=== PATIENT | male | born 1935 | race Caucasian/White ===

== ENCOUNTER → 2017-08-27 | Outpatient (CLI) | payer MEDICARE, BC ==
[~2017-08-27] VITALS: Ht 170.2 cm; Wt 63.5 kg
[~2017-08-27] MED LIST: AMLODIPINE BESY10 MG PO; ASPIRIN81 M2 PO; CARVEDILOL3.125 MG PO; CLARITIN10 MG PO; FLOMAX0.4 MG PO; FOLIC ACID1 MG PO; LISINOPRIL20 MG PO; OXYCODONE HCL15 MG PO; PRAVACHOL40 MG PO; PREDNISONE 10 M10 M1 PO; PROSCAR 5MG TABL5 MG PO; [UNRECOGNIZED DRUG - OTHER] PO
[2017-08-27 09:41] LABS: HEMATOCRIT 31.5 % (42.0-52.0); HEMOGLOBIN 10.6 gm/dL (14.0-18.0); MCH 31.7 pg (26.0-34.0); MCHC 33.6 g/dL (28.0-37.0); MCV 94.4 fL (80.0-100.0); MPV 7.6 fl. (7.2-11.1); RBC 3.34 mil/uL (4.50-6.00); WBC 8.5 thou/uL (4.0-11.0)
[2017-08-27 09:49] LABS: ANION GAP 4 mmol/L (7-16); BUN 21 mg/dL (7-18); CHLORIDE 102 mmol/L (98-107); CO2 32 mmol/L (21-32); CREATININE 0.9 mg/dL (0.6-1.3); GLUCOSE 107 mg/dL (70-99); POTASSIUM 4.6 mmol/L (3.5-5.1); SODIUM 138 mmol/L (136-145)
[2017-08-27 09:50] LABS: APTT 25.7 Seconds (25.0-31.3); PROTIME 9.7 Seconds (9.20-11.50)
[2017-08-27 09:55] LABS: ALBUMIN 3.3 g/dL (3.4-5.0); ALKALINE PHOSPHATASE 61 U/L (46-116); CHOLESTEROL 172 mg/dL (<200); HDL CHOLESTEROL 89 mg/dL (>40); LDL CHOLESTEROL 75 mg/dL (<100); SGOT 20 U/L (15-37); SGPT 22 U/L (30-65); TC:HDL 1.9 Ratio (Not establshd); TOTAL BILIRUBIN 0.6 mg/dL (<0.1-1.0); TOTAL PROTEIN 6.4 g/dL (6.4-8.2); TRIGLYCERIDE 43 mg/dL (<150); VLDL 9 mg/dL (<40)
[2017-08-27 09:56] LABS: SERUM ASSESSMENT Clear
[2017-08-27 10:07] VITALS: BP 137/49
[2017-08-27 12:50] LABS: HCO3 27.9 mmol/L (22.0-26.0); PCO2 43.9 mmHg (35.0-45.0); PO2 68.8 mmHg (75.0-100.0); pH 7.421 (7.340-7.450)
[2017-08-27 12:50] LABS: BE 4.4 mmol/L (-2 to +3); HCO3 30.2 mmol/L (22.0-26.0); PCO2 VENOUS 50.9 mmHg (41.0-51.0)
[2017-08-27 12:54] LABS: PO2 VENOUS 36.7 mmHg (35.0-45.0)
[2017-08-27 13:56] VITALS: BP 147/63
[2017-08-27 15:22] VITALS: BP 136/69
[2017-08-27 16:36] VITALS: BP 117/65
--- NOTE | 2017-08-27 18:19 | EKG ---
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: : 1935 Requested By: Eric Strauss Order Number: [id number] Reading MD: Eric Strauss Measurements Intervals [place] Rate: 72 P: -2 ND: 186 QRS: -65 QRSD: 135 T: 36 QT: 429 QTc: 470 Interpretive Statements Sinus rhythm Probable left atrial enlargement IVCD, consider atypical RBBB Left ventricular hypertrophy Anterior infarct, old Abnormal T, consider ischemia, lateral leads No previous ECG available for comparison Electronically Signed On 08-27-2017 18:19:34 CDT by Eric Strauss [email or web address] <ELECTRONICALLY SIGNED> By: Eric Strauss MD, [facility] 08/27/17 1819 28 28 Eric Strauss MD, [facility] /EPI
--- NOTE | 2017-08-27 20:33 | CARD ---
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 The right femoral was infiltrated with 1% Lidocaine subcutaneous anesthesia. A Right Heart Catheterization was performed with a 7 Fr. [place]-Val catheter and pressure were recorded. Cardiac outputs were obtained by the Thermal Dilution method. A 7Fr x 11cm Quynh sheath was inserted into the RFA^. Coronary angiography was performed using coronary diagnostic catheters. The right coronary system was accessed and visualized with a Diagnostic 6fr JR catheter. The left coronary system was accessed and visualized with a Diagnostic 6fr JL 4 catheter. The left ventricle was accessed and visualized with a dual lumen pigtail catheter. Left ventricular/Aortic Valve gradient assessed via catheter pullback. Left ventriculogram was performed in LARA projection. An aortogram of the ascending aorta was performed. Pre-demployment femoral angiogram was [place] [address] CARDIAC CATH REPORT Name: RAFAELA WRAY Room: [facility] Juanjose#: [id number] Admission: 08/27/17 Attend Phys: Eric Strauss MD, F Discharge: Date of : 35 Report #: [id number] deployed with a 6 Fr MynxGrip 6/7F. Hemostasis was obtained with manual pressure following sheath removal without any complications. The patient tolerated the procedure well and there were no complications associated with the procedure. There was no hematoma. 7 Malay sheath placed in the RFV and hemostasis achieved by direct pressure. SVG to RCA visualized with MTP catheter. SVG to circumflex visualized with 6F JR4 catheter. Unable to cannulate left subclavian artery with either JR4 or MTP catheter because of tortuous aortic arch. Intraoperative Conscious Sedation Sedation start time: 12:04 Case end Time: 13:27 Versed 2 mg Fluoro Time: 13.2 minutes Dose: DAP 35270 cGycm2 1546.27 mGy Contrast Type and Amount: Visipaque 250 ml Coronary Angiography The patient's coronary anatomy is right dominant. [place] Artery Percent Stenosis Grafts (Complete if Previous CABG=Yes: Percent Stenosis) Unable to cannulate left subclavian artery, therefore, MCDANIEL graft was not antegrade filled. However, retrograde flow noted into MCDANIEL graft on visualization of [place] LAD. Patent SVG noted to distal diagonal branch and distal marginal branch of the circumflex. Second patent SVG noted arising from the aorta and filled the PDA and BERNARD branch of the distal RCA. Diagnostic Cath Left Main 0% stenosis LAD 80% stenosis before second diagonal branch and 80% mid stenosis noted. Competitve flow noted from a MCDANIEL graft. Diagonal 1 small vessel with ostial 90% stenosis Diagonal 2 medium sized vessel with ostial 80% stenosis Circumflex proximally occluded Right Coronary proximally occluded Left Ventriculography The left ventricular ejection fraction is estimated to be 40-45%. There is no mitral insufficiency. Aortic root injection revealed [place] [address] CARDIAC CATH REPORT Name: RAFAELA WRAY Room: [facility]#: [id number] Admission: 08/27/17 Attend Phys: Eric Strauss MD, F Discharge: Date of : 35 Report #: [id number] Hemodynamics The right atrial mean pressure is 4 mmHg. The right ventricular pressure is 30/5 mmHg. The pulmonary artery pressure is 30/10 mmHg with a mean of 15 mmHg. The mean pulmonary capillary wedge pressure is 8 mmHg. The aortic pressure is 155/49 mmHg with a mean of mmHg. The left ventricular pressure is 179 mmHg with a mean of mmHg. The left ventricular end diastolic pressure is 10 mmHg. Pullback from the left ventricle to the aorta revealed a 25 mm gradient across the aortic valve. PaO2 saturation is 66.40 %. Arterial saturation is 91.90 %. The cardiac output and index were assessed using thermodilution. The cardiac output using thermo method is 5.13 L/min. The cardiac index using thermo method is 2.96 L/min/m2. The peak gradient across the aortic valve is 25 mmHg. The aortic valve area is 1.0-0.9 cm2. The mean gradient across the mitral valve is 0 mmHg. Conclusion 1. Mild LV dysfunction 2. Unable to cannulate MCDANIEL graft, although retrograde flow noted from [place] lad 3. patent SVG to diagonal artery and marginal branch 4. patent SVG to PDA and BERNARD branch of the distal RCA 5. Moderately severe and moderate AI Recommendations 1. consider transcatheter aortic valve replacement. 2. consider arteriogram of MCDANIEL graft from left radial artery. <ELECTRONICALLY SIGNED> By: Eric Strauss MD, FACC 08/27/172031 31 arlette Strauss MD, FACC /INF
--- NOTE | 2017-08-29 17:42 | H ---
[address] [address] HISTORY AND PHYSICAL Name: RAFAELA WRAY Room: [facility] Manning[facility]ri[facility]#: [id number] Admission: 08/27/17 Attend Phys: Eric Strauss MD, F Discharge: Date of : 35 Report #: [id number] THIS REPORT FOR: //name// CC: Eric Rubi MD HISTORY OF PRESENT ILLNESS: The patient is an 82-year-old white male who was brought to the Outpatient Department at [facility] to undergo cardiac catheterization. The patient had coronary artery bypass surgery x 5 at [facility] in 2000. He has done well since that time, although he developed PAD. He actually had right leg bypass surgery by Dr. Villar at [facility] in apparently 2010. He has had stents placed since that time. He denies any significant leg pain at this time. He denied any recent chest pain. However, he has had increasing shortness of breath and was actually admitted to [facility] recently for 5 days. He underwent an echocardiogram that showed evidence of aortic stenosis. He was referred to [facility] for consideration of transcatheter aortic valve replacement as he was not felt to be an operative candidate. Prior to undergoing aortic valve replacement percutaneously, coronary bypass surgery was requested. The patient denies any significant syncope or palpitations. PAST MEDICAL HISTORY: Otherwise, significant for no other surgical procedures. He does have a history of hypertension. MEDICATIONS ON ADMISSION: Included amlodipine, aspirin, Proscar, lisinopril, prednisone for arthritis, ranitidine, Flomax and Pravachol. ALLERGIES: He has no known drug allergies. FAMILY HISTORY: Negative for heart disease. SOCIAL HISTORY: He is . He and his live outside of [place], [place], on a farm. He quit smoking. No alcohol abuse. REVIEW OF SYSTEMS: He has had no history of stroke, asthma, peptic ulcer disease, liver disease, kidney disease or cancer. PHYSICAL EXAMINATION: VITAL SIGNS: Revealed a blood pressure of 120/60, pulse 60. He is afebrile. HEENT: Mucous membranes moist. He has bilateral carotid bruits. CHEST: Clear to auscultation. HEART: Regular rate and rhythm, grade 3 systolic ejection murmur. ABDOMEN: Soft, nontender. EXTREMITIES: Had no edema. Posterior tibial pulses cannot be palpated. SKIN: [place] [address] HISTORY AND PHYSICAL Name: RAFAELA WRAY Room: [facility]#: [id number] Admission: 08/27/17 Attend Phys: Eric Strauss MD, F Discharge: Date of : 35 Report #: [id number] RADIOLOGICAL DATA: His ECG shows a sinus rhythm, left axis, septal Q-waves, nonspecific ST and T-wave changes. LABORATORY DATA: His potassium is 4.6, BUN 21, creatinine 0.9. His hematocrit is 31.5. The patient did have a carotid Doppler study a year ago that showed a 50%-69% stenosis. Nuclear stress test last year showed no ischemia. IMPRESSION AND RECOMMENDATIONS: 1. Aortic stenosis. The patient is being considered for percutaneous aortic valve replacement. Recommend cardiac catheterization. 2. Aortic stenosis. Recommend cardiac catheterization. 3. Hypertension. The patient is on a calcium travon and RACHEL inhibitor. 4. Peripheral arterial disease with previous bypass and stenting. The patient followed by Dr. Villar. 5. Hyperlipidemia. The patient is on a statin drug. 6. Moderate carotid stenosis. Asymptomatic. <ELECTRONICALLY SIGNED> By: Eric Strauss MD, FACC 08/29/17 1742 1048 [id number] Strauss MD, FACC /nt
== END | disposition home or self-care (01) ==
LOC: M.CL 08:58
PROVIDERS: Internal Medicine Cardiovascular Disease
DX: I50.1 Left ventricular failure, unspecified (principal); I35.2 Nonrheumatic aortic (valve) stenosis with insufficiency; I10 Essential (primary) hypertension; E78.00 Pure hypercholesterolemia, unspecified; I73.89 Other specified peripheral vascular diseases; M19.90 Unspecified osteoarthritis, unspecified site; Z87.891 Personal history of nicotine dependence; Z79.899 Other long term (current) drug therapy; Z95.1 Presence of aortocoronary bypass graft; Z79.01 Long term (current) use of anticoagulants; Z95.5 Presence of coronary angioplasty implant and graft; Z79.82 Long term (current) use of aspirin